=== PATIENT | female | born 1995 | race Caucasian/White ===

== ENCOUNTER 2022-08-29 20:30 | Emergency (ER) | payer BC, MEDICAID ==
[2022-08-29] MEDS ORDERED: Sodium Chloride 0.9% 10 ML Syringe FLUSH PRN (20:36)
[2022-08-29 21:04] LABS: PTT,PARTIAL THROMBOPLSTIN TIME 23.9 SEC (20.5-30.9)
[2022-08-29 21:09] LABS: CHLORIDE,CL 105 mmol/L (98-107); SODIUM,NA 141 mmol/L (136-145)
[2022-08-29 21:11] LABS: ESTIMATED GFR 126 mL/min (>=60)
[2022-08-29] MEDS ORDERED: Take Home: Nitrofurantoin Monohydrate/Macrocrystalline 100 MG, 2 Cap Pack PO ONE (21:20)
== END 2022-08-29 21:35 | disposition home or self-care (01) ==
LOC: VM.ED 20:30
DX: N39.0 Urinary tract infection, site not specified (principal); Z88.0 Allergy status to penicillin; Z88.6 Allergy status to analgesic agent
CPT/HCPCS: 36415; 80053; 81001; 81025; 82150; 83690; 83735; 84100; 85025; 85610; 85730; 86140; 87086; 99284; A9270-GY